=== PATIENT | female | born 1945 | race Caucasian/White ===

== ENCOUNTER 2016-12-21 07:13 | Day surgery (SDC) | payer MEDICARE ==
[~2016-12-21] VITALS: Ht 162.6 cm; Wt 69.6 kg
[2016-12-21] MEDS ORDERED: IOHEXOL 350 MG/ML 50 ML BTL (for Cath Lab) OTHER ONE (07:14)
[2016-12-21] MEDS ORDERED: IOHEXOL 350 MG/ML 10 ML VIAL (for RAD DIAG) IVCONTRAST ONE (07:14)
[2016-12-21] MEDS ORDERED: DEXT155P PO (07:59)
[2016-12-21 08:01] VITALS: BP 126/73; PULSE 65; RESP 18; TEMP 98.7; O2SAT 97
[2016-12-21] MEDS ORDERED: ENAL10TA PO (08:02)
[2016-12-21] MEDS ORDERED: OMEP20TA PO (08:02)
[2016-12-21] MEDS ORDERED: OMEGCAP PO (08:02)
[2016-12-21] MEDS ORDERED: ASPI81TA5 PO (08:02)
[2016-12-21] MEDS ORDERED: CALCTAB33 PO (08:02)
[2016-12-21] MEDS ORDERED: HYDR12.56 PO (08:02)
[2016-12-21] MEDS ORDERED: LOVA40TA PO (08:02)
[2016-12-21] MEDS ORDERED: VITATAB43 PO (08:02)
[2016-12-21] MEDS ORDERED: FERR325T8 PO (08:02)
[2016-12-21] MEDS ORDERED: HEPARIN-NS/PF INJ 1,000 ML ONE (10:55)
[2016-12-21] MEDS ORDERED: MIDAZOLAM HCL 2 MG/2 ML VIAL ONE ×2 (10:55→11:11)
[2016-12-21] MEDS ORDERED: SODIUM CHLORID 0.9% 500 ML INJ 500 ML ONE (10:55)
[2016-12-21 11:02] LABS: BACTERIA, URINE RARE /hpf; BLOOD, URINE TRACE (NEG); GLUCOSE,URINE NEG (NEG); KETONE, URINE NEG (NEG); NITRITE,URINE NEG (NEG); PH, URINE 6.5 (5.0-8.5); SQUAMOUS EPITHELIAL CELL URINE 2 /hpf (0-5); TRANSITIONAL EPI CELLS, URINE <1 /hpf; URINE COLOR LIGHT-YELLOW (YELLW/STRAW)
[2016-12-21 11:07] LABS: COMMENT (UR) CATH-CULTURE IND; CULTURE IF INDICATED CATH CULTURE IND
--- NOTE | 2016-12-21 11:53 | CATHPROC ---
Minted HIS Report Study Information Study Number Admission Scheduled Start Study Start [id number] Dec 21 2016 7:13AM 12/21/2016 Dec 21 2016 10:45AM [place] Service Cardiac Catheterization Admit Source Facility Department Other [facility] - Line Manager Physician and Clinical Staff Initial Alfredo Fregoso Restoration Silversmith Yassine Barnhart,SG Other cathlab, cathlab Recorder Cesar Davis RCIS(BS) ScrNathalia Whitaker RCIS TECH2 Procedures Performed Procedure Location (Site) Vessel Name Coronary Angiograms LCA Left Coronary Coronary Angiograms RCA Right Coronary Equipment Time Biology Internship Description Size Mfg Part Number Used/Scraped ARROW INTERNATIONAL CATHETER, FR.7 BALLOON [id number] 10:46 FR 7 Used INC. WEDGE PRESSURE *[id number] TRANSDUCER, TRLeto Solutions [id number] 10:46 RAZO ZAPIEN * Used W/STOCKCOCK *[id number] VASCADE, FR6 CLOSURE SYSTEM [id number] 11:48 CARDIVA MEDICAL FR 6\7 Used TAVR *[id number] TAVR 534-545T *[id number] 534-546T *[id number] 534-520T *[id number] 534-521T *[id number] WIRE, STRT MOVEABLE CORE [id number] .035 *[id number] 11:45 DAIG/ST. MIO MEDICAL ANGIOSEAL, FR6 VIP FR 6 Used *[id number] 10:46 MEDLINE INDUSTRIES PACK, CCL CUSTOM * Used *[id number] 10:46 Mumboe PACER PEN, SKIN DUAL W/ RULER * Used *[id number] 10:46 Proteus Biomedical WIRE, 3MMJ .035 180CM 180CM Used *[id number] 10:46 NAMIC MANIFOLD, 2 PORT * Used *[id number] 10:46 NAMIC MANIFOLD, 4 PORT * Used *[id number] 10:46 NYCOMED OMNIPAQUE, 350 MG, 150ML 150ML [id number] Used [id number] 10:46 ORTEGA MEDICAL BLANKET,WARM AIR CCL * Used *[id number] 10:46 TERUMO MEDICAL SHEATH, FR5 TERUMO (10CM) FR 5 Used *[id number] 10:46 TERUMO MEDICAL SHEATH, FR7 TERUMO (10CM) FR 7 Used *[id number] Equipment Model, Serial, Lot Number and Expiration Data Description Model Number Serial Number Lot Number Expiration Date ANGIOSEAL, 6 [facility] [id number] 09-27-2017 History: Current Medications Medication Dosage/Unit Route Frequency Last Date/Time Taken ASA Statins (any) History: Allergies Allergy Reaction Sulfa (Sulfonamide Antibiotics) codeine tramadol History: Risk Factors Family History of Hypertension Dyslipidemia Previous AL Previous Heart Failure Premature CAD Yes Yes Yes No No Prior Valve Prior PCI Prior CABG Surgery No No No Cerebrovascular Peripheral Artery Chronic Lung On Dialysis Diabetes Disease Disease Disease No No No No No History: Symptoms/Diagnosis Selection Items SOB History: Stress Tests Stress or Imaging Studies Performed No History: Other Disease Selection Items HTN History: Other Current Smoker No Labs Hgb (g/dl) Hct (%) WBC (l/cumm) Platelets (thousands) 11.60-17.00 35.00-51.00 4.00-11.00 150.00-450.00 13.0 39.3 6.2 241 Glucose (mg/dl) BUN (mg/dl) Creatinine (mg/dl) BUN:Creatinine (1:x) 74.00-106.00 7.00-18.00 0.50-1.30 10.00-20.00 109 16 0.8 20 Na (meq/l) K (meq/l) 136.00-145.00 3.50-5.10 143 3.7 CPK-MB (ng/ML) 0.50-3.60 Not Drawn Medication Medication Total Dose (Bolus/Oral) Medication Total Dosage/Unit 1% XYLOCAINE 20 mL FENTANYL 100 mcg VERSED 2.5 mg Medications (Bolus/Oral) Medication Time Given Dosage/Unit Administered By Reason 12/21/2016 11:07:12 VERSED 2 mg Yassine Barnhart AM 2 mg VERSED given in lab by Yassine Barnhart RN in Left Antecubital via Peripheral IV. Ordered by Alfredo Reese. 12/21/2016 11:07:20 FENTANYL 50 mcg Yassine Barnhart AM 50 mcg FENTANYL given in lab by Yassine Barnhart RN in Left Antecubital via Peripheral IV. Ordered by Alfredo Alvares. 12/21/2016 11:11:22 1% XYLOCAINE 20 mL Yassine Barnhart AM 20 mL 1% XYLOCAINE given in lab by Yassine Barnhart RN in Right Groin via Subcutaneous. Ordered by Alfredo Contreras. 12/21/2016 11:13:13 VERSED 0.5 mg Yassine Barnhart AM 0.5 mg VERSED given in lab by Yassine Barnhart RN in Left Antecubital via Peripheral IV. Ordered by Alfredo Foote. 12/21/2016 11:14:02 FENTANYL 50 mcg Yassine Barnhart AM 50 mcg FENTANYL given in lab by Yassine Barnhart RN in Left Antecubital via Peripheral IV. Ordered by Alfredo Alvares. Medication (Drip) Medication Time Given Dosage/Unit Concentration/Unit Diluent (ml) Solution 12/21/2016 10:46:58 IV Solutions 0 mL (IV) 500 NaCl .9 AM Patient arrived on IV Solutions given by Yassine Barnhart RN in Left Antecubital via Peripheral IV. Pum p/Drip Flow = 20 ml/hr using NaCl .9. Ordered by Alfredo Reese. Initial Case Assessment Cardiovascular HR Rhythm NIBP Chest Pain 62 nsr 144/49 0 Edema Present Skin color Skin None Normal Warm Dry Circulatory - Right Pulses Dorsalis Pedis Femoral 3 3 Scale (0,1,2,3,4,d) Circulatory - Left Pulses Dorsalis Pedis Femoral 3 3 Scale (0,1,2,3,4,d) Neurological State Oriented to time-place- Alert Moves all extremities person Respiration - General Respiration Rate SpO2 (%) (B/min) 16 96 Final Case Assessment Cardiovascular HR Rhythm NIBP Chest Pain 60 nsr 107/56 0 Edema Present Skin color Skin None Normal Warm Dry Circulatory - Right Pulses Dorsalis Pedis Femoral 3 3 Scale (0,1,2,3,4,d) Circulatory - Left Pulses Dorsalis Pedis Femoral 3 3 Scale (0,1,2,3,4,d) Neurological State Oriented to time-place- Alert Moves all extremities person Respiration - General Respiration Rate SpO2 (%) (B/min) 16 96 Chronological Log Time Study Chronological Log 10:46:48 Patient arrived via Bed. 10:46:49 Patient Name, D.O.B, / Armband Verified By R.N. 10:46:50 Consent signed by the physician and the patient and verified by the Line Manager staff. 10:46:50 Pre-op and post- op instructions given; patient acknowledges understanding of instructions. 10:46:51 Verbal Stimulation=2 Physical Stimulation=2 Airway=2 Respiration=2 TOTAL=8. (0=absent, 1=li mited, 2=present) 10:46:52 Presedation assessment performed by Line Manager RN. 10:46:52 Immediate Presedation assesment performed by physician. 10:46:53 Patient has been NPO for More than 6Hrs. 10:46:53 Skin Breakdown- none per patient 10:46:54 Patient Warmer Placed on the Table. 10:46:55 Chrissy Prominences Protected 10:46:57 A # 20 IV was noted in the Antecubital (left). Grade = 0 Patient arrived on IV Solutions given by Yassine Barnhart RN in Left Antecubital via Peripheral I V. Pump/Drip Flow = 20 10:46:58 ml/hr using NaCl .9. Ordered by Alfredo Reese. 10:46:58 History and physical on the chart or being dictated. Assessment: Initial Case, HR=62 BPM, Rhythm=nsr, DIXO=813/49 mmhg, Chest Pain=0, Edema=None, Co rolf=Normal, Skin = Warm, Dry Right Pulses: Lopez Ped=3, Femoral=3 10:53:37 Left Pulses: Lopez Ped=3, Femoral=3 Neurological: State=Alert, Ox3, LOU Respiration: Resp=16 B/min, SpO2=96 % Vitals capture started with the following parameters, Patient=Adult, Interval=5 min, Initial Pr xquink=759 mmHg, 10:56:15 Deflation Rate=5 mmHg, Cuff placed on Left Arm 10:56:47 Bilateral groins prepped with 2% chlorhexidine, and draped after a 3 minute waiting time. 10:57:45 HR=67 bpm, RAAH=346/49 mmhg, SpO2=97.0 %, Resp=18 B/min, Pain=0, Sudheer=10, Pruitt=2 10:59:44 MD paged 11:01:55 HR=63 bpm, OYGJ=380/72 mmhg, SpO2=98.0 %, Resp=10 B/min, Pain=0, Sudheer=10, Pruitt=2 11:05:28 MD responded 11:05:45 Pressure channel 1 zeroed. 11:06:16 Reference ECG taken 11:06:25 MD arrived. 11:06:28 Immediate Presedation assesment performed by physician. Time Out. Correct patient, correct procedure, correct physician, power injector not loaded with contrast with surgical 11:06:37 team present. Time Out Concurred by MD and individual staff in procedure. 11:06:50 HR=67 bpm, PPHW=090/70 mmhg, SpO2=98.0 %, Resp=14 B/min, Pain=0, Sudheer=10, Pruitt=2 11:07:12 2 mg VERSED given in lab by Yassine Barnhart RN in Left Antecubital via Peripheral IV. Ordere d by Alfredo Reese. 11:07:20 50 mcg FENTANYL given in lab by Yassine Barnhart RN in Left Antecubital via Peripheral IV. Or dered by Alfredo Reese. 11:07:24 Verbal Stimulation=2 Physical Stimulation=2 Airway=2 Respiration=2 TOTAL=8. (0=absent, 1=li mited, 2=present) 11:09:17 Pressure channel 2 zeroed. 11:10:42 Case Start 11:11:22 20 mL 1% XYLOCAINE given in lab by Yassine Barnhart RN in Right Groin via Subcutaneous. Order ed by Alfredo Reese. 11:11:51 HR=67 bpm, RUEM=452/61 mmhg, SpO2=94.0 %, Resp=16 B/min, Pain=0, Sudheer=10, Pruitt=2 11:13:13 0.5 mg VERSED given in lab by Yassine Barnhart RN in Left Antecubital via Peripheral IV. Orde red by Alfredo Reese. 11:14:02 50 mcg FENTANYL given in lab by Yassine Barnhart RN in Left Antecubital via Peripheral IV. Or dered by Alfredo Reese. 11:16:52 HR=68 bpm, OVWQ=265/57 mmhg, SpO2=86.0 %, Resp=16 B/min, Pain=0, Sudheer=10, Pruitt=2 11:19:27 Access site was Right Femoral Vein. 11:20:08 Access site was Right Femoral Artery. 11:20:11 A SHEATH, FR5 TERUMO (10CM) FR 5 was advanced into the Fem Art (right) using the Percutaneo us technique. 11:20:15 A SHEATH, FR7 TERUMO (10CM) FR 7 was advanced into the Fem Vein (right) using the Percutane ous technique. 11:21:47 HR=60 bpm, YWTS=708/63 mmhg, SpO2=90 %, Resp=9 B/min, Pain=0, Sudheer=10, Pruitt=2 11:22:57 A CATHETER, FR.7 BALLOON WEDGE PRESSURE FR 7 was inserted via Fem Vein (right) Recorded Pressure: RA, HR=51, Condition=Condition 1 11:23:40 (Right Atrium) RA Recorded Pressure: RV, HR=64, Condition=Condition 1 11:24:10 (Right Ventricle) RV Recorded Pressure: MPA, HR=56, Condition=Condition 1 11:25:57 (Main Pulmonary Artery) MPA 17/09/11 Recorded Pressure: PCW, HR=63, Condition=Condition 1 11:26:36 (Pulmonary Capillary Wedge) PCW 11:26:48 HR=59 bpm, NIBP=98/61 mmhg, SpO2=90.0 %, Resp=15 B/min, Pain=0, Sudheer=10, Pruitt=2 11:27:00 Saturation: Site=PA (Pulmonary Artery) , O2=69.9 %, Hgb=13 gm/dl, Condition=Condition 1. Us ed in calculation. 11:27:10 Saturation: Site=Ao (Aorta) , O2=96.5 %, Hgb=13 gm/dl, Condition=Condition 1. Used in calcu lation. A AL 1 INFINITI CATHETER FR 5 was advanced over a wire. OMNIPAQUE, 350 MG, 150ML 150ML was used for 11:28:20 injections. 11:29:25 [place] Kourtney Catheter Removed 11:30:22 The previous wire was exchanged for a WIRE, STRT MOVEABLE CORE .035 *. 11:31:47 HR=61 bpm, AMWS=582/60 mmhg, SpO2=88.0 %, Resp=15 B/min, Pain=0, Sudheer=10, Pruitt=2 11:35:29 Wire removed After removing the current catheter a AL 2 INFINITI CATHETER FR 5 was advanced over a WIRE, 3MM J .035 180CM 11:35:32 180CM. 11:36:16 The previous wire was exchanged for a WIRE, STRT MOVEABLE CORE .035 *. 11:36:52 HR=65 bpm, NIBP=86/50 mmhg, SpO2=94.0 %, Resp=13 B/min, Pain=0, Sudheer=10, Pruitt=2 11:38:07 Wire removed After removing the current catheter a JL 5.0 INFINITI CATHETER FR 5 was advanced over a WIRE, 3 MMJ .035 180CM 11:38:46 180CM. 11:41:47 The LCA was injected and visualized at various angles. OMNIPAQUE, 350 MG, 150ML 150ML used . 11:42:26 HR=62 bpm, TCUS=674/57 mmhg, SpO2=90.0 %, Resp=14 B/min, Pain=0, Sudheer=10, Pruitt=2 After removing the current catheter a JR 4.0 INFINITI CATHETER FR 5 was advanced over a WIRE, 3 MMJ .035 180CM 11:43:47 180CM. 11:44:27 The RCA was injected and visualized at various angles. OMNIPAQUE, 350 MG, 150ML 150ML used . 11:45:14 Catheter was removed 11:45:25 ANGIOSEAL, FR6 VIP FR 6 placement in the Fem Art (right) 11:46:27 VASCADE, FR6 CLOSURE SYSTEM TAVR FR 6\7 placement in the Fem Vein (right) 11:46:50 HR=61 bpm, KSOP=765/56 mmhg, SpO2=93.0 %, Resp=8 B/min, Pain=0, Sudheer=10, Pruitt=2 11:47:41 Case End Assessment: Final Case, HR=60 BPM, Rhythm=nsr, PHQZ=319/56 mmhg, Chest Pain=0, Edema=None, [place] r=Normal, Skin = Warm, Dry Right Pulses: Lopez Ped=3, Femoral=3 11:47:44 Left Pulses: Lopez Ped=3, Femoral=3 Neurological: State=Alert, Ox3, LOU Respiration: Resp=16 B/min, SpO2=96 % 11:48:36 Catheter(s) removed without difficulty 11:48:39 Sterile dressing applied to site 11:48:40 No case complications noted. 11:48:41 Cine recording checked. 11:49:02 Bedside Report will be given. 11:49:04 Implantable Device card placed in patient's chart. 11:49:05 Contrast Scanned 11:49:08 Verbal Stimulation=2 Physical Stimulation=2 Airway=2 Respiration=2 TOTAL=8. (0=absent, 1=li mited, 2=present) 11:49:13 A Left and Right Heart Cath was performed. 11:51:53 ILRS=514/56 mmhg, Pain=0, Sudheer=10, Pruitt=2 11:52:29 Patient moved to stretcher 11:52:31 Vitals capture stopped. End Study - Contrast Media Used In Study Contrast Total Opened (mL) Total Used (mL) Total Wasted (mL) Omnipaque 30 30 0 End Study - Maximum Contrast Load Max Contrast Load (mL) 431.3 End Study - Radiation Exposure Fluoro Time (minutes) 11.0 End Study - Patient Disposition Complications Transferred To Interventional Outcome No Line Manager Holding No attempt made
[2016-12-21] MEDS ORDERED: ONDANSETRON HCL 4 MG/2 ML VIAL IV PUSH PRN (12:00)
[2016-12-21] MEDS ORDERED: METOCLOPRAMIDE HCL 10 MG/2 ML VIAL IV PUSH PRN (12:00)
[2016-12-21] MEDS ORDERED: SODIUM CHLOR 0.9% 250 ML INJ 250 ML IV PRN (12:00)
[2016-12-21] MEDS ORDERED: LIDOCAINE HCL 1% 50 ML VIAL INFIL PRN (12:00)
[2016-12-21] MEDS ORDERED: LORazepam 2 MG/ML VIAL IV PUSH PRN (12:00)
[2016-12-21] MEDS ORDERED: ATROPINE SULFATE 1 MG/ML VIAL IV PUSH PRN (12:00)
[2016-12-21] MEDS ORDERED: BACITRACIN OINT 0.9 GM PKT TOP ONE (12:00)
[2016-12-21] MEDS ORDERED: MISC INFORMATION XX ONE (12:00)
--- NOTE | 2016-12-21 12:26 | MA ---
cc: ALFREDO GONSALES DATE 12/21/2016 PROCEDURE PERFORMED 1. Fluoroscopy with interpretation. 2. Right heart catheterization. 3. Coronary angiography. METHOD The risks, benefits and alternatives were discussed with the patient. The patient understood and consented to the procedure. PROCEDURE The patient was brought into the catheterization lab, placed on the catheterization table. The right groin was prepped and draped in sterile fashion. The right groin was anesthetized using 2% lidocaine. The right common femoral artery was is cannulated and the 5-[place]ine[place], 11-cm sheath was placed without difficulty. The right femoral vein was accessed and a 5-[place]inean, 11-cm sheath was placed without difficulty. RIGHT HEART CATHETERIZATION 1. Right atrial pressure measured at 6 mmHg. 2. Right ventricular pressure measured at 22/2 mmHg. 3. Pulmonary arterial pressure measured 20/7 mmHg. 4. Pulmonary capillary wedge pressure measured 6 mmHg. 5. Cardiac output measured at 4.6 liters per minute. 6. Cardiac index is 2.7 liters per minute per meter2. CORONARY ANGIOGRAPHY 1. Left main coronary is angiographically normal. 2. Left anterior descending coronary is angiographically normal. 3. Left circumflex coronary is angiographically normal. 4. Right coronary is a dominant vessel giving rise to a posterior descending branch. The right coronary is angiographically normal. CONCLUSIONS 1. Angiographically normal coronary arteries. 2. Severe aortic stenosis. PLAN We will consul Cardiothoracic Surgery for consideration of aortic valve replacement. Alfredo Gonsales MD SM/SSB /11:51 AM /12:16 PM
[2016-12-21 12:51] LABS: MRSA PCR NEGATIVE (NEGATIVE); STAPH AUREUS PCR NEGATIVE (NEGATIVE)
--- NOTE | 2016-12-21 14:25 | RADRPT ---
EXAM DATE/TIME: 12/21/2016 13:39 [facility] COMPARISON: No previous studies available for comparison. INDICATIONS : Preop aortic valve replacement. MEDICAL HISTORY : Hypertension. Aortic stenosis. Chronic kidney disease. SURGICAL HISTORY : Cardiac cath. ENCOUNTER: Initial ACUITY: 1 day PAIN SCORE: 0/10 LOCATION: Bilateral neck PEAK SYSTOLIC VELOCITIES (cm/sec): ICA/CCA RATIO: Right: 1.1 Left: 1.0 ICA: Right: 89.7 Left: 91.4 CCA: Right: 82.3 Left: 90.1 ECA: Right: 74.3 Left: 97.8 VERTEBRAL: Right: 43.1 antegrade Left: 110.8 antegrade Elevated flow velocities and ICA/CCA ratios have been found to correlate with increased degrees of vessel stenosis, calculated as percentage of diameter relative to a normal segment of distal ICA/CCA FINDINGS: RIGHT CAROTID: No significant stenosis is visualized. The waveforms are within normal limits. LEFT CAROTID: Minimal plaque formation in the carotid bulb. No shadowing. No widening of the velocity spectrum. VERTEBRAL ARTERIES: Antegrade flow is seen in both vertebral arteries. There is, however, asymmetric velocity, elevated in the left vertebral. CONCLUSION: 1. Normal hemodynamic profile both carotids. 2. Antegrade flow in both vertebrals with elevated velocity on the left side. Benjamin Eller MD on December 21, 2016 at 14:22 Board Certified Radiologist. This report was verified electronically.
--- NOTE | 2016-12-21 17:23 | RADRPT ---
EXAM DATE/TIME: 12/21/2016 16:43 [facility] COMPARISON: No previous studies available for comparison. INDICATIONS : Evaluate for pneumonia, pneumothorax or communicable disease. Preop workup for possible aortic valve replacement MEDICAL HISTORY : Hypertension. aortic stenosis, chronic kidney disease SURGICAL HISTORY : cardiac catheterization ENCOUNTER: Initial ACUITY: 1 day PAIN SCORE: 0/10 LOCATION: Bilateral chest FINDINGS: The lungs are symmetrically aerated. There is focal area of infiltrate without air bronchograms in t he lower lateral left lung, only seen on the frontal view, causing loss of delineation lateral left h emidiaphragm. At the right apex, there is an elongated opacity which measures 3 x 8 mm, best seen in the interspace between the posterior 3rd and 4th ribs. Cannot exclude pulmonary nodule. The heart is normal size. Osseous structures are grossly intact. CONCLUSION: 1. Faint opacity in the right apex is of uncertain significance. Can not exclude a pulmonary nodule. 2. Focal area of consolidation lower lateral left lung. 3. Recommend CT thorax for further evaluate the right apex for presence of a pulmonary nodule. Benjamin Eller MD on December 21, 2016 at 17:20 Board Certified Radiologist. This report was verified electronically.
[2016-12-21 18:43] LABS: AUTOMATED NEUTROPHIL # 6.6 TH/MM3 (1.8-7.7); BASOPHIL % 0.5 % (0.0-2.0); EOSINOPHIL # 0.1 TH/MM3 (0-0.4); EOSINOPHIL % 1.2 % (0.0-4.0); HEMATOCRIT 35.6 % (35.0-46.0); HEMO FLAGS DIFF FINAL; LYMPH % 16.6 % (9.0-44.0); LYMPHOCYTE # 1.5 TH/MM3 (1.0-4.8); MEAN CELL VOLUME 90.7 FL (80.0-100.0); MEAN CORPUSCULAR HEMOGLOBIN 31.4 PG (27.0-34.0); MEAN CORPUSCULAR HGB CONC 34.6 % (32.0-36.0); MONO % 8.2 % (0.0-8.0); NEUT % 73.5 % (16.0-70.0); PLATELET COUNT 224 TH/MM3 (150-450); RED BLOOD COUNT 3.92 MIL/MM3 (4.00-5.30); RED CELL DISTRIBUTION WIDTH 13.8 % (11.6-17.2)
[2016-12-21 18:52] LABS: PROTHROMBIN TIME - PATIENT 11.2 SEC (9.8-11.6)
[2016-12-21 19:16] LABS: ALKALINE PHOSPHATASE 64 U/L (45-117); ALT (GPT) 31 U/L (10-53); ANION GAP 6 MEQ/L (5-15); AST (GOT) 46 U/L (15-37); BICARBONATE 27.6 MEQ/L (21.0-32.0); BLOOD UREA NITROGEN 16 MG/DL (7-18); CHLORIDE 102 MEQ/L (98-107); GLOMERULAR FILTRATION RATE 60 ML/MIN (>89); POTASSIUM 4.5 MEQ/L (3.5-5.1); SODIUM (NA) 136 MEQ/L (136-145); TOTAL BILIRUBIN ADULT 0.6 MG/DL (0.2-1.0)
[2016-12-21 21:08] LABS: HEMOGLOBIN A1a 1.1 %; HEMOGLOBIN A1b 0.8 %; HEMOGLOBIN Ao 83.3 %; HEMOGLOBIN F 1.9 %; HEMOGLOBIN LA1C 2.5 %; HEMOGLOBIN P3 5.4 %
--- NOTE | 2016-12-21 21:51 | RADRPT ---
EXAM DATE/TIME: 12/21/2016 17:22 [facility] COMPARISON: No previous studies available for comparison. INDICATIONS : Aortic stenosis IV CONTRAST: 100 cc Omnipaque 350 (iohexol) IV RADIATION DOSE: 9.97 CTDIvol (mGy) MEDICAL HISTORY : Hypertension. Chronic renal disease,aortic stenosis SURGICAL HISTORY : Cardiac cath ENCOUNTER: Initial ACUITY: 1 day PAIN SCALE: 0/10 LOCATION: TAVR TECHNIQUE: Volumetric scanning was performed using a multi-row detector CT scanner. The data was post processed with a variety of visualization algorithms including full volume maximum intensity projection, multi -planar sliding thin slab reformation, curved planar reformation, and surface rendering techniques. Using automated exposure control and adjustment of the mA and/or kV according to patient size, radiat ion dose was kept as low as reasonably achievable to obtain optimal diagnostic quality images. DIC OM format image data is available electronically for review and comparison. FINDINGS: CARDIAC: The coronary system is less dominant. There is calcifications of the diagonal branch and RCA branches . AORTIC ROOT/VALVE: Calcifications of the aortic fossa are seen. The aortic root measures 2.8 and distance to takeoff of the LAD is almost 1 cm.. Mid thoracic aorta measures 3.6 x 3.7 cm in AP and transverse diameters with no calcifications. THORACIC AORTA: Origin of the great vessels is normal. No evidence of aneurysm, mural thrombus, dissection, mural ca lcification, or stenosis. ABDOMINAL AORTA: No evidence of aneurysm, mural thrombus, dissection, mural calcification, or stenosis. CELIAC ARTERY: Celiac artery is widely patent. SMA: Superior mesenteric artery is widely patent. RIGHT RENAL ARTERY: Right renal artery is widely patent. LEFT RENAL ARTERY: Left renal artery is widely patent and there are 2 left renal arteries.. RIGHT COMMON ILIAC: No evidence of aneurysm, mural thrombus, dissection, mural calcification, or stenosis. The common fe moral measures 8mm. LEFT COMMON ILIAC: No evidence of aneurysm, mural thrombus, dissection, mural calcification, or stenosis. The common fe moral measures 8mm. THORAX: Unremarkable ABDOMEN: Unremarkable PELVIS: There is hemorrhage which extends from the patient's right inguinal region extraperitoneal in locatio n all the way to the level of the cecum maximum diameter of approximately 6.2 cm dissecting within ex traperitoneal fascial planes. There are gas bubbles within this hemorrhage, however no active extrava sation is seen. CONCLUSION: Extraperitoneal hemorrhage extending from right inguinal region to the level of the cecum and causes mass effect on the bladder without evidence for active extravasation. Findings were discussed with Dr Deepti Dueñas covering for Dr. Reese on 12/21/2016 at the time of this dictation. Omar Jones MD on December 21, 2016 at 21:36 Board Certified Radiologist. This report was verified electronically.
--- NOTE | 2016-12-22 08:15 | MB ---
cc: ENEDELIA COLON DATE OF : 43 DATE OF CONSULTATION: 12/21/2016 HISTORY OF PRESENT ILLNESS: The patient is a 71 year-old female complaining of shortness of breath and fatigue over the past month. Denied any chest pain. No syncope. She has a history of heart murmur that she has known for the last 10 years, was seen in the past by Dr. Le in [place], underwent echocardiogram on 11/30/2016 showing aortic valve gradient of 64 with aortic valve area 0.63, mild aortic valve regurgitation, severe aortic valve stenosis, mild tricuspid valve regurgitation, some left ventricular hypertrophy, EF of 60-65%, some grade 1 diastolic dysfunction. She underwent cardiac cath today which showed no evidence of obstructive disease, EF of 55%. We were consulted to evaluate for transcatheter aortic valve replacement versus aortic valve replacement. PAST MEDICAL HISTORY: Significant for: 1. Severe aortic stenosis. 2. Coronary artery disease. 3. Hypertension. 4. Hyperlipidemia. 5. History of prior GI bleed. 6. Chronic kidney disease. PAST SURGICAL HISTORY: 1. Right breast surgery, benign. 2. Colonoscopy. 3. EGD. 4. History of jaw surgery 30 years ago. 5. Bilateral knee arthroscopic surgery. ALLERGIES: None known. HOME MEDICATIONS: 1. Aspirin 81 daily. 2. Calcium. 3. Enalapril. 4. Ferrous sulfate 5. Fish oil. 6. Hydrochlorothiazide 7. Lovastatin. 8. Omeprazole 9. Vitamin B12. FAMILY HISTORY: Mother at 73 from heart disease. Father from complications of prostate cancer. SOCIAL HISTORY The patient , two children. No tobacco. Retired from working at [employer]. No alcohol. REVIEW OF SYSTEMS: In general, no night sweats, fever, heat and cold intolerance. Skin: No psoriasis, itching or hives. HEENT: No blurred vision, hearing loss. Respiratory: Positive for shortness of breath. No cough. Cardiovascular: No chest pain. No syncope. No paroxysmal nocturnal dyspnea. Gastrointestinal: No diarrhea, vomiting. Genitourinary: No burning, frequency, urgency. MANUFACTURING QUALITY TECHNICIAN: No history of TIA, seizure disorder. Endocrinology: No history of diabetes and/or hypothyroidism. PHYSICAL EXAMINATION: On exam, blood pressure 140/80, heart rate 96, temperature max 98.8. GENERAL: Patient is awake, alert, no acute distress. Head: Normocephalic, atraumatic. Pupils equal and reactive. Oral mucosa pink, moist. Neck: Supple. No JVD. Heart: Heart sounds grade 3/6 systolic murmur. Lungs: Clear to auscultation. No wheezes, rales or rhonchi. Abdomen: is soft, obese. Extremities: No cyanosis, clubbing or edema. LABORATORY DATA: Lab work shows moderate leuko esterase, rare bacteria, culture completely pending. Sodium 143, potassium 3.7, BUN 16, creatinine 0.82. Hemoglobin 13, hematocrit 39, white cell count 6, platelet count of 241, INR 0.9. MRSA negative. Carotid ultrasound was unremarkable. Chest x-ray: Some pain opacity in the right apex of uncertain significance, cannot exclude a pulmonary nodule. Recommend CT chest. CTA of the chest is pending. STS data shows a risk of mortality 2.164, morbidity mortality 13, frailty score 1.4. IMPRESSION: The patient is a 71 year-old female with history of severe aortic stenosis, status post heart catheterization with nonobstructive disease. The patient's risk of mortality is 2.165 with a frailty of 1.4. She is relatively unremarkable comorbidities other than her age of 71. Chronic kidney disease stage II, GFR 60 to 80. At this time the patient will be further evaluated by Dr. Enedelia Colon to evaluate the patient for TAVR, however, she is relatively low risk score recommending minimally invasive aortic valve replacement at this time. Dictated by: VICKY MazariegosP-Jana MD SHEBA Pang/ZAKIYA /5:58 PM /8:06 AM
--- NOTE | 2016-12-23 09:31 | RSPPFT ---
DATE OF PROCEDURE: 12/21/16 COMMENTS: Spirometry shows FVC of 2.6 at 94% of predicted, FEV1 of 1.8 at 86%, FEV1/FVC ratio is normal. Flow is normal at FEF 25 and FEF 50. Flow is mildly decreased at FEF 25-75. Post-bronchodilator study was not done. IMPRESSION: 1. Mild small airways obstructive lung disease. 2. Post-bronchodilator study was not performed.
== END 2016-12-21 18:18 | disposition home or self-care (01) ==
LOC: HCAT 07:13 → HDIC 07:14 → HCAT 18:18
PROVIDERS: ATTEND Internal Medicine
DX: I35.0 Nonrheumatic aortic (valve) stenosis (principal); R53.83 Other fatigue; I25.10 Atherosclerotic heart disease of native coronary artery without angina pectoris; I12.9 Hypertensive chronic kidney disease with stage 1 through stage 4 chronic kidney disease, or unspecified chronic kidney disease; N18.2 Chronic kidney disease, stage 2 (mild); I70.0 Atherosclerosis of aorta; E78.5 Hyperlipidemia, unspecified; I65.29 Occlusion and stenosis of unspecified carotid artery; D50.9 Iron deficiency anemia, unspecified; J20.9 Acute bronchitis, unspecified; M54.5 Low back pain; M54.2 Cervicalgia; E55.9 Vitamin D deficiency, unspecified
CPT/HCPCS: 71020; 74174; 80053; 81001; 82040; 82810; 83036; 85025; 85610; 86850; 86900; 86901; 87086; 87640; 87641; 93453; 93880; 94010; C1760; C1769; C1893; G0269; J1644; J2250; J3010; J7040; Q9967

== ENCOUNTER 2017-01-04 07:30 | Inpatient (IN) | payer MEDICARE ==
[~2017-01-04] VITALS: Ht 163.8 cm; Wt 73.5 kg
[~2017-01-04 07:30] MED LIST: CALCTAB33 PO; DEXT155P PO; ECASA81 PO; ENAL10TA PO; FERR325T18 PO; HYDR12.56 PO; LOVA40TA PO; OMEGCAP PO; OMEP20TA93 PO; VITATAB43 PO
[2017-01-07] VITALS (8 sets, daily range): BP systolic 99–135; BP diastolic 51–64; PULSE 61–79; RESP 12–16; TEMP 96.3–98.6; O2SAT 96–99
[2017-01-07] MEDS ORDERED: DEXTROSE 50% IN WATER 50 ML VIAL(D50) IV PUSH PRN ×2 (06:00→14:00)
[2017-01-07] MEDS ORDERED: CHLORHEXIDINE GLUCONATE 2 % 1 PACK (2 CLOTHS) TOPICAL PRN (06:00)
[2017-01-07] MEDS ORDERED: METOPROLOL TARTRATE 25 MG TAB PO SCH (06:00)
[2017-01-07] MEDS: LACTATED RINGER'S 1000 ML IV PRN ×2 (06:00→14:59)
[2017-01-07] MEDS ORDERED: ceFAZolin 2 GM PREMIX 50 ML IV SCH (06:00)
[2017-01-07] MEDS ORDERED: SODIUM CHLORIDE 0.9% FLUSH 10 ML FLUSH IV FLUSH PRN ×3 (06:00→14:00)
[2017-01-07] MEDS ORDERED: CEFAZOLIN 500 MG in NS IRR BTL 500 ML IRRIGATION SCH (06:00)
[2017-01-07] MEDS ORDERED: POVIDONE IODINE 5% (ANTISEPSIS KIT) 4 APPLICATIONS EACH NARE PRN (06:00)
[2017-01-07] MEDS ORDERED: CHLORHEXIDINE GLUCONATE 4% SOLN 120 ML BTL TOPICAL SCH (06:00)
[2017-01-07] MEDS ORDERED: SODIUM CHLORID 0.9% 500 ML IV PRN (06:00)
[2017-01-07] MEDS ORDERED: HEPARIN SODIUM - SQ 10,000 UNITS/ML VIAL ONE ×2 (06:03→07:26)
[2017-01-07] MEDS ORDERED: methylPREDNISolone SOD SUCC 125 MG/2 ML VIAL ONE (06:04)
[2017-01-07] MEDS ORDERED: VANCOMYCIN HCL 1000 MG VIAL ONE (06:04)
[2017-01-07] MEDS ORDERED: CUSTODIOL HTK IRR SOLN 2,000 ML ONE (07:26)
[2017-01-07] MEDS ORDERED: ALBUMIN 25% INJ 50 ML IV ONE (07:26)
[2017-01-07] MEDS ORDERED: HEPARIN SODIUM - IV 10,000 UNITS/10 ML VIAL ONE (07:27)
[2017-01-07] MEDS ORDERED: SODIUM BICARBONATE 8.4% INJ 150 ML ONE (07:27)
[2017-01-07] MEDS ORDERED: MANNITOL INJ 100 ML ONE (07:28)
[2017-01-07] MEDS ORDERED: CALCIUM CHLORIDE 10% SOLN 1 GRAM/10 ML SYR ONE (07:28)
[2017-01-07] MEDS ORDERED: POTASSIUM CHLORIDE 40 MEQ/20 ML VIAL ONE (07:29)
[2017-01-07] MEDS: BUPIVACAINE HCL PF 0.5% 30 ML VIAL ONE ×2 (07:52→12:03)
[2017-01-07] MEDS: MUPIROCIN 2% OINT 22 GM TUBE EACH NARE SCH ×2 (09:00→21:00)
[2017-01-07] MEDS: INSULIN REGULAR 100 UNITS in NS 100 ML IV PRN (09:50)
[2017-01-07] MEDS ORDERED: DEXMEDETOMIDINE HCL 200 MCG/2 ML VIAL ONE (11:59)
[2017-01-07] MEDS ORDERED: SODIUM CHLORIDE 0.9% 20 ML VIAL IV ONE (12:00)
[2017-01-07] MEDS ORDERED: AMIODARONE HCL 150 MG/3 ML VIAL IV ONE (12:00)
[2017-01-07] MEDS ORDERED: GLYCOPYRROLATE 1 MG/5 ML SYRINGE IV PUSH ONE (12:00)
[2017-01-07] MEDS ORDERED: NITROGLYCERIN 50 MG/DEXTROSE 5% SOLN 250 ML BTL IV ONE (12:00)
[2017-01-07] MEDS ORDERED: LIDOCAINE HCL 1% PF 5 ML AMPULE OTHER ONE (12:00)
[2017-01-07] MEDS ORDERED: HEPARIN SODIUM - SQ 10,000 UNITS/ML VIAL SQ ONE (12:00)
[2017-01-07] MEDS ORDERED: VECURONIUM BROMIDE 20 MG VIAL IV ONE (12:00)
[2017-01-07] MEDS ORDERED: NEOSTIGMINE 3 MG/3 ML SYR IV ONE (12:00)
[2017-01-07] MEDS ORDERED: PHENYLEPHRINE HCL 10 MG/ML VIAL IV ONE (12:00)
[2017-01-07] MEDS ORDERED: MAGNESIUM SULFATE 1 GM/2 ML VIAL IV ONE (12:00)
[2017-01-07] MEDS ORDERED: PROTAMINE SULFATE 250 MG/25 ML VIAL IV ONE (12:00)
[2017-01-07] MEDS ORDERED: SODIUM BICARBONATE 8.4% INJ 50 MEQ/50 ML SYR IV ONE (12:00)
[2017-01-07] MEDS ORDERED: fentaNYL CITRATE 2500 MCG/50 ML VIAL IV ONE (12:00)
[2017-01-07] MEDS ORDERED: ePHEDrine/NS 25 MG/5 ML SYR IV ONE ×2 (12:00)
[2017-01-07] MEDS ORDERED: ceFAZolin INJ 1,000 MG VIAL IV ONE (12:00)
[2017-01-07] MEDS ORDERED: MIDAZOLAM HCL 2 MG/2 ML VIAL IV ONE (12:00)
[2017-01-07] MEDS ORDERED: PHENYLEPH/NS 1000 MCG/10 ML SYR IV ONE ×2 (12:00)
[2017-01-07] MEDS ORDERED: POTASSIUM CHLOR 40 MEQ PREMIX 100 ML ONE (12:04)
[2017-01-07] MEDS ORDERED: ceFAZolin INJ 1,000 MG VIAL ONE (12:17)
[2017-01-07] MEDS ORDERED: DEXMEDETOMIDINE INJ 200 MCG in SODIUM CHLORIDE 0.9% INJ 50 ML IV PRN (12:30)
--- NOTE | 2017-01-07 12:53 | PD.OP ---
cc: Enedelia Colon MD; Alfredo Reese MD Operative Report Date of Surgery: Jan 07, 2017 Preoperative Diagnosis: (1) Aortic stenosis (2) Diastolic CHF due to valvular disease Postoperative Diagnosis: same Procedure: Minimally invasive AVR with a 23 Intuity tissue valve Ultrasound-guided left femoral artery and vein access with Perclose closure of the artery CHRISTINE Anesthesia: Dr. Crowder Surgeon: Enedelia Colon [employer] Bever[employer] Intern(s): NESTOR Kebede Operation and Findings: The risks, benefits, complications, treatment options, and expected outcomes were discussed with the patient. The possibilities of reaction to medication, pulmonary aspiration, perforation of viscus, bleeding, recurrent infection, the need for additional procedures, failure to diagnose a condition, and creating a complication requiring transfusion or operation were discussed with the patient. The patient concurred with the proposed plan, giving informed consent. The site of surgery properly noted/marked. The patient was taken to Operating Room, identified as Marbella James and the procedure verified as Minimally Invasive Aortic Valve Replacement. A Time Out was held and the above information confirmed. Standard monitoring lines and Hoffmann catheter were placed. General anesthesia was induced. The patient was prepped and draped in a sterile fashion. . A 6 cm right anterior thoracotomy was performed and the 3rd rib was shingled. The right internal mammary artery and vein were ligated and divided. An Deonte retractor was placed followed by a small chest retractor. The pericardium was opened and a pericardial sling was created using interrupted 0 silk sutures. A small 1 cm incision was made at the 6th intercostal space and an LV vent and pericardial suction were placed through this access port. The aorta was dissected posteriorly for crossclamp placement. The left femoral artery and vein were percutaneously accessed using ultrasound guidance. The patient was heparinized for cardiopulmonary bypass. The left femoral artery was cannulated with a 17F [employer] arterial cannula. The left femoral vein was cannulated with a 21 [employer] cannula under CHRISTINE guidance. Three Perclose devices were placed in the artery for later closure Antegrade Custodiol cardioplegia were employed. The patient was placed on cardiopulmonary bypass. An aortic cross-clamp was applied and the heart was arrested using cold blood cardioplegia delivered through a 14F catheter. The aorta was opened above the sinotubular ridge and the aortic valve was exposed. On opening the aorta, the valve appeared functionally bicuspid with heavily calcified leaflets. The valve was resected as well as all annular calcification , sized for a 23 mm Intuity tissue valve which was placed with 2-0 non pledgeted Tycron valve sutures. The valve seated well and was balloon deployed. The aorta was closed with running 4-0 Prolene suture. The patient systemically rewarmed. The heart was vigorously deaired with a clamp on. The clamp was removed, deairing continued. The patient was easily weaned from cardiopulmonary bypass. Decannulation was carried out without incident and both the femoral artery was closed with the Perclose devices and manual pressure. Protamine was given. There was no adverse reaction. Intraoperative CHRISTINE following the procedure showed a well-seated aortic valve with no perivalvular leak and preserved ventricular function. Wound was checked for hemostasis was obtained using electrocautery. The 3rd rib was reapproximated to the sternum using a plating system. The fascia and pectoralis were closed with 0 Vicryl. The subcutaneous tissue was closed using a running 3-0 Monocryl suture. The skin was closed with 4-0 Monocryl. The groin was closed in 2 layers. Sterile dressings were placed. At the end of the operation, all sponge, instruments, and needle counts were correct. The patient was transferred to the CVICU in stable condition. Enedelia Colon MD Jan 07, 2017 12:53
[2017-01-07] MEDS ORDERED: SODIUM BICARBONATE 8.4% SOLN 50 MEQ/50 ML VIAL IV PUSH PRN ×2 (14:00→14:15)
[2017-01-07] MEDS ORDERED: ONDANSETRON HCL 4 MG/2 ML VIAL IV PUSH PRN (14:00)
[2017-01-07] MEDS ORDERED: CALCIUM CHLORIDE 10% 1 GRAM/10 ML VIAL IV PUSH PRN (14:00)
[2017-01-07] MEDS ORDERED: METOPROLOL TARTRATE 5 MG/5 ML VIAL IV PUSH PRN (14:00)
[2017-01-07] MEDS ORDERED: CALCIUM CHLORIDE INJ 1 GM in SODIUM CHLORIDE 0.9% INJ 100 ML IV PRN (14:00)
[2017-01-07] MEDS ORDERED: ACETAMINOPHEN 325 MG TAB PO PRN (14:00)
[2017-01-07] MEDS ORDERED: ACETAMINOPHEN 650 MG SUPP RECTAL PRN (14:00)
[2017-01-07] MEDS ORDERED: RESP: RACEPINEPHRINE 2.25% 0.5 ML NEB NEB PRN (14:00)
[2017-01-07] MEDS ORDERED: CLEVIDIPINE INJ 50 ML IV PRN (14:00)
[2017-01-07] MEDS ORDERED: RESP: ALBUTEROL 2.5 MG/IPRATROPIUM 0.5 MG NEB (PRN) NEB (14:00)
[2017-01-07] MEDS: ACETAMINOPHEN 1000 MG/100 ML 100 ML IV SCH ×2 (14:14→20:00)
[2017-01-07] MEDS ORDERED: LACTATED RINGER'S 1000 ML INJ 500 ML IV PRN (14:15)
[2017-01-07] MEDS ORDERED: hydrALAZINE HCL 20 MG/ML VIAL IV PUSH PRN (14:15)
[2017-01-07] MEDS ORDERED: POTASSIUM CHLORIDE 20 MEQ CONTROLLED RELEASE TAB PO PRN ×2 (14:15)
[2017-01-07] MEDS ORDERED: POTASSIUM CHLOR 20 MEQ PREMIX 100 ML IV PRN ×3 (14:15)
--- NOTE | 2017-01-07 14:28 | RADRPT ---
EXAM DATE/TIME: 01/07/2017 13:29 [facility] COMPARISON: CHEST PA & LAT, December 21, 2016, 16:43. CTA TRANS AORTIC VALVE REPLACEMENT, December 21, 2016, 17:22 . INDICATIONS : S/.p cabg MEDICAL HISTORY : Hypertension. aortic stenosis, chronic kidney disease SURGICAL HISTORY : cardiac catherization ENCOUNTER: Initial ACUITY: 1 day PAIN SCORE: Non-responsive. LOCATION: Bilateral chest FINDINGS: Lytic valve, right chest tube, pacing leads and central venous catheter in good position. The left l sotero is clear. Side changes are seen on the right with chest tube evident. CONCLUSION: Postoperative changes as above the chest tube and consolidation changes on the right. Christian Emery MD FACR on January 07, 2017 at 14:24 Board Certified Radiologist. This report was verified electronically.
[2017-01-07] MEDS ORDERED: MAGNESIUM SULFATE INJ 2 GM in SODIUM CHLORIDE 0.9% INJ 100 ML IV PRN ×4 (14:30)
[2017-01-07] MEDS ORDERED: Post-op Orders (for Pharmacy) MISC OTHER ONE (14:45)
[2017-01-07] MEDS ORDERED: INSULIN REGULAR (IV INFUSION) 100 UNITS in SODIUM CHLORIDE 0.9% INJ 99 ML IV PRN (15:00)
[2017-01-07] MEDS: AMIODARONE 200 MG TAB PO SCH ×2 (15:00→23:16)
[2017-01-07] MEDS: ALBUMIN 5% INJ 250 ML IV PRN (15:02)
--- NOTE | 2017-01-07 16:30 | PD.CAR.PN ---
CVT Progress Note Subjective/Hospital Course: 71 year-old female complaining of shortness of breath and fatigue over the past month. Denied any chest pain. No syncope. She has a history of heart murmur that she has known for the last 10 years, was seen in the past by Dr. Le in [place], underwent echocardiogram on 11/30/2016 showing aortic valve gradient of 64 with aortic valve area 0.63, mild aortic valve regurgitation, severe aortic valve stenosis, mild tricuspid valve regurgitation , some left ventricular hypertrophy, EF of 60-65%, some grade 1 diastolic dysfunction. She underwent cardiac cath 12/22/16 which showed no evidence of obstructive disease, EF of 55%. We were consulted to evaluate for transcatheter aortic valve replacement versus aortic valve replacement. PAST MEDICAL HISTORY: Severe aortic stenosis, Coronary artery disease, Hypertension, Hyperlipidemia, History of prior GI bleed, Chronic kidney disease, surgery: 01/07 Minimally invasive AVR with a 23 Intuity tissue valve Ultrasound-guided left femoral artery and vein access with Perclose closure of the artery CHRISTINE Objective: Vital Signs Date Time Temp Pulse Resp B/P (MAP) Pulse Ox O2 Delivery O2 Flow Rate FiO2 01/07/17 16:03 99 Nasal Cannula 6.00 01/07/17 16:02 79 01/07/17 16:02 65 01/07/17 14:50 20 01/07/17 14:33 96.3 01/07/17 13:40 97 Simple Mask 6.00 01/07/17 13:19 95 Simple Mask 6.00 01/07/17 13:18 79 01/07/17 13:16 79 01/07/17 06:19 97.6 92 16 150/72 (98) 96 (1) Chronic kidney disease (2) Hyperlipemia (3) Hypertension (4) History of GI bleed (5) S/P AVR (aortic valve replacement) (6) Aortic stenosis (7) Diastolic CHF due to valvular disease Tita Hernandez Jan 07, 2017 16:30
--- NOTE | 2017-01-07 16:33 | HHI.FF ---
Face to Face Verification Diagnosis: (1) Aortic stenosis (2) Diastolic CHF due to valvular disease (3) Hyperlipemia (4) Hypertension (5) Chronic kidney disease (6) History of GI bleed (7) S/P AVR (aortic valve replacement) Physical Therapy Order: Evaluate and Treat Home Health Nursing Order: Signs/symptoms of disease process Medication education-adverse effect Wound care and dressing changes Nursing assessment with vital signs Instructions: *Special attention to sternal dressing Mandatory frequency Assess and evaluation, 4 days in a row The next week 3X week 2 times a week for 4 weeks 1 time a week for 5 weeks Schedule Heart and Vascular patients for full 60 day certification period Initial visit Review Open Heart Surgery Discharge Instructions (Sternal precautions, Activity, Elastic hose, Incision care, Driving, Incentive spirometry, Smoking, Leonidas, Work and other) Need Betadine to paint incision Medication reconciliation Importance of follow up care/ check on appointments Make calendar record temperature daily When to call [facility], review instructions, phone list Incentive Spirometry, demonstration Visit 1- Begin discharge instruction for patient family and/ or caregiver using teach back method- Signs and symptoms of infection Disease characteristics Medicines and side effects Foods and nutrition/ appetite Infection control/ hand washing/ hygiene Visit 2- Continue teaching Discharge instructions- include additional information on smoking cessation , sternal dressing (sternal vac) Visit 3- Continue teaching- Cough and deep breathing, incision monitoring. Choose my plate Visit 4- Continue teaching- Discuss limitations Discuss how they are feeling Discuss progress toward goals Remaining visits- continue teaching and monitoring Incentive spirometry Q1 hr x 10, while awake, also use acapella device hourly whole awake chest wall Precautions: NO pushing or pulling, ( pt must use chest pillow to support chest with all activities and with coughing All females to wear sternal bra , launder as needed Daily incision care: ok to shower daily, no tub bath. Wash all incisions with liquid dial soap, clean wash cloth to each site, rinse and pat dry. Observe for any signs of infection, such as drainage which is dark yellow, marte, green or foul smelling. Immediately report to the surgeon any drainage from the chest incision, or legs, and for any abnormal drainage from the chest tube sites. Notify surgeon if any temp >101.5 degrees F. When specialty dressing removed/ or if you do not have one, continue to shower daily as above, then rinse and pat incision dry and paint with betadine daily x 5 days. Allow steri strips to fall off if you have any. Avoid lotions, creams, salves, oils, etc. for the first month For Dr. Colon patients , please obtain CBC, BMP, PA & Lat CXR in 2 weeks, results to Dr. Colon ( prescription will be given) ( ) (Tele: [phone]) , Valve replacement pts will need 2decho in 2 weeks with results to Dr. Colon . Please obtain 2 d echo at your customer quality specialist office if possible F/U appointment: as per [place] instructions: PCP in 2 weeks, CV surgeon 2 weeks, Final Inspector 3-4 weeks For any questions regarding incisions/ dressing / meds / post op care or above Symptoms, Tuesday 8am-5pm Heart & Vascular Surgery Office ( Dr. Lipscomb & Dr. Colon), After Hours / Nights (5pm -8am) Weekends and Holidays Please call [facility] ([facility]) Charge Nurse I have seen patient Marbella James on 01/07/17. My clinical findings support the need for the requested home health care services because: Deconditioned w/ increased weakness I certify that my clinical findings support that this patient is homebound because: Post-op weakness Tita Hernandez Jan 07, 2017 16:33
--- NOTE | 2017-01-07 18:03 | EKG ---
Date Performed: 01/07/2017 Time Performed: 06:07:01 PTAGE: 71 years EKG: Sinus rhythm MARKED LEFT AXIS DEVIATION INCOMPLETE RIGHT BUNDLE BRANCH BLOCK ABNORMAL ECG PREVIOUS TRACING : 12/04/1997 09.03 DOCTOR: Gisselle Olea Interpretating Date/Time 01/07/2017 18:00:58
[2017-01-07] MEDS: oxyCODONE/ACETAMINOPHEN 5 MG/325 MG TAB PO PRN ×2 (19:33→23:16)
[2017-01-07] MEDS: SODIUM CHLORIDE 0.9% FLUSH 10 ML FLUSH IV FLUSH SCH (21:00)
[2017-01-08] VITALS (13 sets, daily range): BP systolic 103–148; BP diastolic 37–67; PULSE 56–69; RESP 12–22; TEMP 97–98.6; O2SAT 92–98
[2017-01-08] MEDS: ALBUMIN 5% INJ 250 ML IV PRN
[2017-01-08] MEDS: INSULIN REGULAR 100 UNITS in NS 100 ML IV PRN (01:19)
[2017-01-08] MEDS: ACETAMINOPHEN 1000 MG/100 ML 100 ML IV SCH ×2 (01:20→08:22)
[2017-01-08] MEDS: oxyCODONE/ACETAMINOPHEN 5 MG/325 MG TAB PO PRN ×4 (04:14→19:57)
--- NOTE | 2017-01-08 05:19 | RADRPT ---
EXAM DATE/TIME: 01/08/2017 04:35 [facility] COMPARISON: CHEST SINGLE AP, January 07, 2017, 13:29. INDICATIONS : Shortness of breath, CABG MEDICAL HISTORY : Hypertension. Aortic Stenosis, Kidney disease SURGICAL HISTORY : CABG. ENCOUNTER: Subsequent ACUITY: 2 days PAIN SCORE: 7/10 LOCATION: Bilateral chest FINDINGS: The cardiac silhouette is enlarged in transverse diameter. There are findings of congestive heart colt lure with interstitial and alveolar opacity bilaterally. A moderate size right sided effusion is pres ent. CONCLUSION: 1. Cardiomegaly and findings of congestive heart failure. There has been no significant change when c ompared to the prior exam. Norberto Kunz MD on January 08, 2017 at 5:17 Board Certified Radiologist. This report was verified electronically.
[2017-01-08 05:24] LABS: BICARBONATE 24.8 MEQ/L (21.0-32.0); POTASSIUM 4.1 MEQ/L (3.5-5.1)
[2017-01-08 05:51] LABS: MEAN CELL VOLUME 90.7 FL (80.0-100.0); MEAN CORPUSCULAR HEMOGLOBIN 30.7 PG (27.0-34.0); MEAN CORPUSCULAR HGB CONC 33.9 % (32.0-36.0); PLATELET COUNT 108 TH/MM3 (150-450); RED BLOOD COUNT 2.06 MIL/MM3 (4.00-5.30); RED CELL DISTRIBUTION WIDTH 13.8 % (11.6-17.2)
[2017-01-08 05:55] LABS: REVIEW FLAG FINAL
[2017-01-08 05:58] LABS: HEMATOCRIT 18.7 % (35.0-46.0)
[2017-01-08] MEDS: AMIODARONE 200 MG TAB PO SCH ×3 (06:45→22:26)
[2017-01-08] MEDS: PANTOPRAZOLE SOD 40 MG DELAYED RELEASE TAB PO SCH (06:45)
[2017-01-08] MEDS ORDERED: FUROSEMIDE 40 MG/4 ML VIAL IV PUSH SCH (07:45)
--- NOTE | 2017-01-08 08:02 | PD.CAR.PN ---
CVT Progress Note CVT: POD #: 1 Subjective/Hospital Course: 71 year-old female complaining of shortness of breath and fatigue over the past month. Denied any chest pain. No syncope. She has a history of heart murmur that she has known for the last 10 years, was seen in the past by Dr. Le in [place], underwent echocardiogram on 11/30/2016 showing aortic valve gradient of 64 with aortic valve area 0.63, mild aortic valve regurgitation, severe aortic valve stenosis, mild tricuspid valve regurgitation , some left ventricular hypertrophy, EF of 60-65%, some grade 1 diastolic dysfunction. She underwent cardiac cath 12/22/16 which showed no evidence of obstructive disease, EF of 55%. We were consulted to evaluate for transcatheter aortic valve replacement versus aortic valve replacement. PAST MEDICAL HISTORY: Severe aortic stenosis, Coronary artery disease, Hypertension, Hyperlipidemia, History of prior GI bleed, Chronic kidney disease, surgery: 01/07 Minimally invasive AVR with a 23 Intuity tissue valve Ultrasound-guided left femoral artery and vein access with Perclose closure of the artery CHRISTINE 01/08/17 c/o right choulder and back pain., anemic Objective: Vital Signs Date Time Temp Pulse Resp B/P (MAP) Pulse Ox O2 Delivery O2 Flow Rate FiO2 01/08/17 06:40 97.0 63 14 131/45 98 01/08/17 06:26 97.6 69 16 134/43 97 01/08/17 04:00 95 Nasal Cannula 2.00 01/08/17 04:00 72 01/08/17 03:00 62 01/08/17 03:00 98.2 63 16 119/53 (75) 97 143/37 (72) 01/08/17 00:00 62 01/08/17 00:00 98 Nasal Cannula 2.00 01/07/17 23:00 98.4 64 12 126/64 (84) 96 135/51 (79) 01/07/17 23:00 61 01/07/17 21:31 97 Nasal Cannula 3.00 01/07/17 21:00 98 Nasal Cannula 3.00 01/07/17 20:00 99 Nasal Cannula 4.00 01/07/17 20:00 74 01/07/17 19:15 99 Nasal Cannula 5.00 01/07/17 19:00 97.8 68 16 99/62 (74) 99 108/52 (70) 01/07/17 19:00 69 01/07/17 18:18 98.6 01/07/17 18:13 18 01/07/17 16:03 99 Nasal Cannula 6.00 01/07/17 16:02 79 01/07/17 16:02 65 01/07/17 14:50 20 01/07/17 14:33 96.3 01/07/17 13:40 97 Simple Mask 6.00 01/07/17 13:19 95 Simple Mask 6.00 01/07/17 13:18 79 01/07/17 13:16 79 Labs: Laboratory Tests Test 01/08/17 04:15 White Blood Count 10.0 TH/MM3 (4.0-11.0) Red Blood Count 2.06 MIL/MM3 (4.00-5.30) Hemoglobin 6.3 GM/DL (11.6-15.3) Hematocrit 18.7 % (35.0-46.0) Mean Corpuscular Volume 90.7 FL (80.0-100.0) Mean Corpuscular Hemoglobin 30.7 PG (27.0-34.0) Mean Corpuscular Hemoglobin Concent 33.9 % (32.0-36.0) Red Cell Distribution Width 13.8 % (11.6-17.2) Platelet Count 108 TH/MM3 (150-450) Mean Platelet Volume 9.2 FL (7.0-11.0) Blood Urea Nitrogen 19 MG/DL (7-18) Creatinine 0.52 MG/DL (0.50-1.00) Random Glucose 99 MG/DL (74-106) Calcium Level 8.2 MG/DL (8.5-10.1) Magnesium Level 2.0 MG/DL (1.5-2.5) Sodium Level 144 MEQ/L (136-145) Potassium Level 4.1 MEQ/L (3.5-5.1) Chloride Level 110 MEQ/L (98-107) Carbon Dioxide Level 24.8 MEQ/L (21.0-32.0) Anion Gap 9 MEQ/L (5-15) Estimat Glomerular Filtration Rate 116 ML/MIN (>89) Result Diagram: 01/08/17 0415 01/08/17 0415 Imaging: Last 24 hours Impressions Chest X-Ray 01/08/17 0500 Signed Impressions: Service Date/Time: Sunday, January 08, 2017 04:35 - CONCLUSION: 1. Cardiomegaly and findings of congestive heart failure. There has been no significant change when compared to the prior exam. Norberto Kunz MD Cardiovascular: RRR Telemetry: NSR Pulmonary: CTA GI/: NABS, NT Incision: dry and intact CT: ~800ml since OR Plan: Transfer to stepdown Transfuse 2 u pRBC, diurese Continue chest tubes Advance diet D/C wu Encourage ambulation, up to chair (1) Chronic kidney disease (2) Hyperlipemia (3) Hypertension (4) History of GI bleed (5) S/P AVR (aortic valve replacement) (6) Aortic stenosis (7) Diastolic CHF due to valvular disease Enedelia Colon MD Jan 08, 2017 08:02
[2017-01-08] MEDS ORDERED: GLUCAGON 1 MG/ML VIAL OTHER PRN (08:15)
[2017-01-08] MEDS ORDERED: DEXTROSE 50% IN WATER 50 ML VIAL(D50) IV PUSH PRN (08:15)
[2017-01-08] MEDS ORDERED: BISACODYL 10 MG SUPP RECTAL PRN (08:15)
[2017-01-08] MEDS ORDERED: PILL SPLITTER OTHER PRN (08:30)
[2017-01-08] MEDS ORDERED: MULTIVITAMIN INJ 10 ML, THIAMINE INJ 500 MG, FOLIC ACID INJ 1 MG in SODIUM CHLORID 0.9%... IV SCH (09:00)
[2017-01-08] MEDS: MUPIROCIN 2% OINT 22 GM TUBE EACH NARE SCH ×2 (09:00→21:00)
[2017-01-08] MEDS: SODIUM CHLORIDE 0.9% FLUSH 10 ML FLUSH IV FLUSH SCH ×2 (09:00→22:27)
[2017-01-08] MEDS ORDERED: NON-FORMULARY DRUG (Fish Oil-Cholecalciferol (Omega-3 Fish Oil/Vitamin) 1 CAP) PO SCH (09:00)
[2017-01-08] MEDS: MAGNESIUM HYDROXIDE SUSP 30 ML CUP PO SCH (09:51)
[2017-01-08] MEDS: ASPIRIN 81 MG CHEW TAB PO SCH (09:51)
[2017-01-08] MEDS: MULTIVITAMINS/MINERALS THERAPEUTIC TAB PO SCH (09:51)
[2017-01-08] MEDS: FERROUS SULFATE 325 MG (65 MG ELEMENTAL IRON) TAB PO SCH (09:51)
[2017-01-08] MEDS: PRAVASTATIN SOD 40 MG TAB PO SCH (09:51)
[2017-01-08] MEDS: METOPROLOL TARTRATE 25 MG TAB PO SCH ×2 (09:52→22:25)
[2017-01-08] MEDS: INSULIN ASPART SUPPLEMENTAL SCALE SQ SCH ×4 (10:00→22:00)
[2017-01-08] MEDS ORDERED: INSULIN DETEMIR 100 UNITS/ML VIAL SQ ONE (12:15)
[2017-01-08 17:15] LABS: HEMATOCRIT 25.8 % (35.0-46.0); REVIEW FLAG FINAL
[2017-01-08] MEDS: DOCUSATE SODIUM 100 MG CAP PO SCH (22:25)
[2017-01-08] MEDS: SENNOSIDES 8.6 MG TAB PO SCH (22:25)
[2017-01-09] VITALS (10 sets, daily range): BP systolic 100–122; BP diastolic 48–60; PULSE 58–73; RESP 14–20; TEMP 97.9–98.6; O2SAT 93–98
[2017-01-09] MEDS: INSULIN ASPART SUPPLEMENTAL SCALE SQ SCH ×6 (02:00→21:00)
[2017-01-09 04:50] LABS: AUTOMATED NEUTROPHIL # 11.4 TH/MM3 (1.8-7.7); BASOPHIL % 0.2 % (0.0-2.0); EOSINOPHIL # 0.1 TH/MM3 (0-0.4); EOSINOPHIL % 0.4 % (0.0-4.0); HEMO FLAGS DIFF FINAL; LYMPH % 9.3 % (9.0-44.0); LYMPHOCYTE # 1.3 TH/MM3 (1.0-4.8); MEAN CELL VOLUME 86.6 FL (80.0-100.0); MEAN CORPUSCULAR HEMOGLOBIN 30.4 PG (27.0-34.0); MEAN CORPUSCULAR HGB CONC 35.1 % (32.0-36.0); MONO % 8.7 % (0.0-8.0); NEUT % 81.4 % (16.0-70.0); PLATELET COUNT 113 TH/MM3 (150-450); RED BLOOD COUNT 2.77 MIL/MM3 (4.00-5.30); WHITE BLOOD COUNT 14.1 TH/MM3 (4.0-11.0)
[2017-01-09 05:12] LABS: BICARBONATE 31.2 MEQ/L (21.0-32.0); MAGNESIUM 2.2 MG/DL (1.5-2.5); POTASSIUM 4.1 MEQ/L (3.5-5.1)
[2017-01-09] MEDS: oxyCODONE/ACETAMINOPHEN 5 MG/325 MG TAB PO PRN ×2 (05:13→23:32)
--- NOTE | 2017-01-09 05:33 | RADRPT ---
EXAM DATE/TIME: 01/09/2017 04:46 [facility] COMPARISON: CHEST SINGLE AP, January 08, 2017, 4:35. INDICATIONS : Evaluate for Plueral Effusion MEDICAL HISTORY : Hypertension. Aortic Stenosis, Kidney Disease SURGICAL HISTORY : CABG. ENCOUNTER: Subsequent ACUITY: 3 days PAIN SCORE: Non-responsive. LOCATION: Bilateral chest FINDINGS: The cardiac silhouette is enlarged in transverse diameter. There are findings of congestive heart colt lure with interstitial and alveolar opacity bilaterally. There has been no significant change when co mpared to the prior exam. Moderate size bilateral pleural effusions are identified. A right chest tub e is in place. There is no evidence of pneumothorax. CONCLUSION: 1. Cardiomegaly and findings of congestive heart failure. There has been no significant change when c ompared to the prior exam. 2. Moderate bilateral effusions Norberto Kunz MD on January 09, 2017 at 5:31 Board Certified Radiologist. This report was verified electronically.
[2017-01-09] MEDS: AMIODARONE 200 MG TAB PO SCH ×2 (06:00→20:43)
[2017-01-09] MEDS: PANTOPRAZOLE SOD 40 MG DELAYED RELEASE TAB PO SCH (06:00)
[2017-01-09] MEDS: SODIUM CHLORIDE 0.9% FLUSH 10 ML FLUSH IV FLUSH SCH ×2 (09:00→20:41)
[2017-01-09] MEDS: MUPIROCIN 2% OINT 22 GM TUBE EACH NARE SCH ×2 (09:00→20:48)
[2017-01-09] MEDS: POLYETHYLENE GLYCOL 17 GM PKG PO SCH (09:18)
[2017-01-09] MEDS: MAGNESIUM HYDROXIDE SUSP 30 ML CUP PO SCH (09:18)
[2017-01-09] MEDS: DOCUSATE SODIUM 100 MG CAP PO SCH ×2 (09:19→20:44)
[2017-01-09] MEDS: MULTIVITAMINS/MINERALS THERAPEUTIC TAB PO SCH (09:19)
[2017-01-09] MEDS: PRAVASTATIN SOD 40 MG TAB PO SCH (09:19)
[2017-01-09] MEDS: ASPIRIN 81 MG CHEW TAB PO SCH (09:19)
[2017-01-09] MEDS: FERROUS SULFATE 325 MG (65 MG ELEMENTAL IRON) TAB PO SCH (09:19)
[2017-01-09] MEDS: METOPROLOL TARTRATE 25 MG TAB PO SCH ×2 (09:19→20:45)
--- NOTE | 2017-01-09 11:12 | PD.CAR.PN ---
CVT Progress Note CVT: POD #: 2 Subjective/Hospital Course: 71 year-old female complaining of shortness of breath and fatigue over the past month. Denied any chest pain. No syncope. She has a history of heart murmur that she has known for the last 10 years, was seen in the past by Dr. Le in [place], underwent echocardiogram on 11/30/2016 showing aortic valve gradient of 64 with aortic valve area 0.63, mild aortic valve regurgitation, severe aortic valve stenosis, mild tricuspid valve regurgitation , some left ventricular hypertrophy, EF of 60-65%, some grade 1 diastolic dysfunction. She underwent cardiac cath 12/22/16 which showed no evidence of obstructive disease, EF of 55%. We were consulted to evaluate for transcatheter aortic valve replacement versus aortic valve replacement. PAST MEDICAL HISTORY: Severe aortic stenosis, Coronary artery disease, Hypertension, Hyperlipidemia, History of prior GI bleed, Chronic kidney disease, surgery: 01/07 Minimally invasive AVR with a 23 Intuity tissue valve Ultrasound-guided left femoral artery and vein access with Perclose closure of the artery CHRISTINE 01/08/17 c/o right choulder and back pain., anemic 01/09/17 c/o right shoulder pain Objective: Vital Signs Date Time Temp Pulse Resp B/P (MAP) Pulse Ox O2 Delivery O2 Flow Rate FiO2 01/09/17 08:00 98 Nasal Cannula 2.00 01/09/17 08:00 94 Nasal Cannula 2.00 01/09/17 08:00 67 01/09/17 07:00 98.1 68 14 106/48 (67) 95 01/09/17 06:15 18 01/09/17 04:00 74 01/09/17 04:00 95 Nasal Cannula 1.00 01/09/17 03:00 98.4 70 20 107/52 (70) 95 01/09/17 03:00 70 01/09/17 00:00 96 Nasal Cannula 1.00 01/09/17 00:00 59 01/08/17 23:00 97.9 64 20 103/46 (65) 97 01/08/17 23:00 59 01/08/17 21:02 95 Nasal Cannula 3.00 01/08/17 20:00 94 Nasal Cannula 1.00 01/08/17 20:00 67 01/08/17 19:00 67 01/08/17 19:00 98.6 67 22 136/42 (73) 92 01/08/17 16:00 67 01/08/17 16:00 94 Nasal Cannula 1.00 01/08/17 15:00 98.3 59 14 120/54 (76) 94 01/08/17 15:00 59 01/08/17 14:17 14 01/08/17 12:26 92 Nasal Cannula 1.00 01/08/17 12:00 56 01/08/17 12:00 95 Nasal Cannula 1.00 Labs: Laboratory Tests Test 01/09/17 04:30 White Blood Count 14.1 TH/MM3 (4.0-11.0) Red Blood Count 2.77 MIL/MM3 (4.00-5.30) Hemoglobin 8.4 GM/DL (11.6-15.3) Hematocrit 24.0 % (35.0-46.0) Mean Corpuscular Volume 86.6 FL (80.0-100.0) Mean Corpuscular Hemoglobin 30.4 PG (27.0-34.0) Mean Corpuscular Hemoglobin Concent 35.1 % (32.0-36.0) Red Cell Distribution Width 15.0 % (11.6-17.2) Platelet Count 113 TH/MM3 (150-450) Mean Platelet Volume 9.0 FL (7.0-11.0) Neutrophils (%) (Auto) 81.4 % (16.0-70.0) Lymphocytes (%) (Auto) 9.3 % (9.0-44.0) Monocytes (%) (Auto) 8.7 % (0.0-8.0) Eosinophils (%) (Auto) 0.4 % (0.0-4.0) Basophils (%) (Auto) 0.2 % (0.0-2.0) Neutrophils # (Auto) 11.4 TH/MM3 (1.8-7.7) Lymphocytes # (Auto) 1.3 TH/MM3 (1.0-4.8) Monocytes # (Auto) 1.2 TH/MM3 (0-0.9) Eosinophils # (Auto) 0.1 TH/MM3 (0-0.4) Basophils # (Auto) 0.0 TH/MM3 (0-0.2) CBC Comment DIFF FINAL Differential Comment Blood Urea Nitrogen 18 MG/DL (7-18) Creatinine 0.67 MG/DL (0.50-1.00) Random Glucose 93 MG/DL (74-106) Calcium Level 8.0 MG/DL (8.5-10.1) Magnesium Level 2.2 MG/DL (1.5-2.5) Sodium Level 141 MEQ/L (136-145) Potassium Level 4.1 MEQ/L (3.5-5.1) Chloride Level 105 MEQ/L (98-107) Carbon Dioxide Level 31.2 MEQ/L (21.0-32.0) Anion Gap 5 MEQ/L (5-15) Estimat Glomerular Filtration Rate 87 ML/MIN (>89) Result Diagram: 01/09/1742901/09/17 043 Imaging: Last 24 hours Impressions Chest X-Ray 01/09/17 0600 Signed Impressions: Service Date/Time: Monday, January 09, 2017 04:46 - CONCLUSION: 1. Cardiomegaly and findings of congestive heart failure. There has been no significant change when compared to the prior exam. 2. Moderate bilateral effusions Norberto Kunz MD Cardiovascular: RRR Telemetry: NSR Pulmonary: Decreased BS bilat GI/: NABS, NT Incision: dry and intact CT: ~140/24hrs Plan: D/C pacing wires and chest tube Up to chair/ambulate x 6 - pulmonary toilet Diurese Supp K Decrease amio dose to 200 bid. Stim BM (1) Chronic kidney disease (2) Hyperlipemia (3) Hypertension (4) History of GI bleed (5) S/P AVR (aortic valve replacement) (6) Aortic stenosis (7) Diastolic CHF due to valvular disease Enedelia Colon MD Jan 09, 2017 11:12
[2017-01-09] MEDS: POTASSIUM CHLORIDE 10 MEQ CONTROLLED RELEASE TAB PO SCH ×2 (11:15→20:42)
[2017-01-09] MEDS: FUROSEMIDE 40 MG/4 ML VIAL IV PUSH SCH (18:00)
[2017-01-09] MEDS: SENNOSIDES 8.6 MG TAB PO SCH (20:44)
[2017-01-10] VITALS (25 sets, daily range): BP systolic 108–133; BP diastolic 53–63; PULSE 58–90; RESP 16–18; TEMP 97.4–98.4; O2SAT 93–97
[2017-01-10] MEDS: INSULIN ASPART SUPPLEMENTAL SCALE SQ SCH ×6 (02:00→21:00)
[2017-01-10] MEDS: PANTOPRAZOLE SOD 40 MG DELAYED RELEASE TAB PO SCH (06:06)
--- NOTE | 2017-01-10 06:22 | RADRPT ---
EXAM DATE/TIME: 01/10/2017 05:06 [facility] COMPARISON: CHEST SINGLE AP, January 09, 2017, 4:46. INDICATIONS : Short of breath. MEDICAL HISTORY : Hypertension. Aortic Stenosis, Kidney Disease SURGICAL HISTORY : CABG. ENCOUNTER: Subsequent ACUITY: 2 weeks PAIN SCORE: 0/10 LOCATION: Bilateral chest FINDINGS: A single view of the chest demonstrates bilateral lower lobe infiltrates right greater left. Right IJ central line in good position. The cardiac silhouette is slightly widened . Osseous structures are intact. CONCLUSION: Infiltrate right lung base remains. Upper lungs are clear. Alfredo Holcomb MD on January 10, 2017 at 6:19 Board Certified Radiologist. This report was verified electronically.
[2017-01-10] MEDS: POLYETHYLENE GLYCOL 17 GM PKG PO SCH (08:44)
[2017-01-10] MEDS: DOCUSATE SODIUM 100 MG CAP PO SCH ×2 (08:46→20:57)
[2017-01-10] MEDS: FERROUS SULFATE 325 MG (65 MG ELEMENTAL IRON) TAB PO SCH (08:46)
[2017-01-10] MEDS: ASPIRIN 81 MG CHEW TAB PO SCH (08:46)
[2017-01-10] MEDS: AMIODARONE 200 MG TAB PO SCH ×2 (08:46→20:57)
[2017-01-10] MEDS: MAGNESIUM HYDROXIDE SUSP 30 ML CUP PO SCH (08:46)
[2017-01-10] MEDS: POTASSIUM CHLORIDE 10 MEQ CONTROLLED RELEASE TAB PO SCH ×2 (08:47→20:57)
[2017-01-10] MEDS: PRAVASTATIN SOD 40 MG TAB PO SCH (08:47)
[2017-01-10] MEDS: METOPROLOL TARTRATE 25 MG TAB PO SCH ×2 (08:47→20:56)
[2017-01-10] MEDS: MULTIVITAMINS/MINERALS THERAPEUTIC TAB PO SCH (08:47)
[2017-01-10] MEDS: FUROSEMIDE 40 MG/4 ML VIAL IV PUSH SCH ×2 (08:47→17:14)
[2017-01-10] MEDS: SODIUM CHLORIDE 0.9% FLUSH 10 ML FLUSH IV FLUSH SCH ×2 (08:48→20:57)
[2017-01-10] MEDS: MUPIROCIN 2% OINT 22 GM TUBE EACH NARE SCH ×2 (08:48→20:57)
--- NOTE | 2017-01-10 14:04 | PD.CAR.PN ---
CVT Progress Note Subjective/Hospital Course: 71 year-old female complaining of shortness of breath and fatigue over the past month. Denied any chest pain. No syncope. She has a history of heart murmur that she has known for the last 10 years, was seen in the past by Dr. Le in [place], underwent echocardiogram on 11/30/2016 showing aortic valve gradient of 64 with aortic valve area 0.63, mild aortic valve regurgitation, severe aortic valve stenosis, mild tricuspid valve regurgitation , some left ventricular hypertrophy, EF of 60-65%, some grade 1 diastolic dysfunction. She underwent cardiac cath 12/22/16 which showed no evidence of obstructive disease, EF of 55%. We were consulted to evaluate for transcatheter aortic valve replacement versus aortic valve replacement. PAST MEDICAL HISTORY: Severe aortic stenosis, Coronary artery disease, Hypertension, Hyperlipidemia, History of prior GI bleed, Chronic kidney disease, surgery: 01/07 Minimally invasive AVR with a 23 Intuity tissue valve Ultrasound-guided left femoral artery and vein access with Perclose closure of the artery CHRISTINE 01/08/17 c/o right shoulder and back pain., anemic 01/09/17 c/o right shoulder pain 01/10 right shoulder pain, slight improvement , add K pad , no deformity noted to tight shoulder, + tenderness over right rhomboid area/ scapula / muscular needs aggressive pulm toileting , atelectasis right lower lobe on room air eval for dc in am , continue pulm toileting Objective: GENERAL: SKIN: Warm and dry. 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 EYES: No scleral icterus. No injection or drainage. NECK: Supple, trachea midline. No JVD or lymphadenopathy. CARDIOVASCULAR: Regular rate and rhythm without murmurs, gallops, or rubs. RESPIRATORY: Breath sounds equal bilaterally. No accessory muscle use. GASTROINTESTINAL: Abdomen soft, non-tender, nondistended. MUSCULOSKELETAL: No cyanosis, or edema. BACK: Nontender without obvious deformity. No CVA tenderness. Vital Signs Date Time Temp Pulse Resp B/P (MAP) Pulse Ox O2 Delivery O2 Flow Rate FiO2 01/10/17 13:07 79 01/10/17 12:04 73 01/10/17 11:35 98.3 74 18 133/63 (86) 94 11/13/17 11:35 71 01/10/17 11:35 94 Room Air 01/10/17 10:24 84 01/10/17 10:09 93 01/10/17 09:00 82 01/10/17 08:15 95 Room Air 01/10/17 08:15 67 01/10/17 08:15 97.4 71 16 114/53 (73) 95 01/10/17 05:05 72 01/10/17 04:08 68 01/10/17 04:07 95 Nasal Cannula 1.00 01/10/17 03:11 98.4 69 16 108/55 (72) 95 01/10/17 03:00 58 01/10/17 02:05 63 01/10/17 01:08 62 01/10/17 00:42 18 01/10/17 00:04 93 Nasal Cannula 1.00 01/10/17 00:01 63 01/09/17 23:00 98.2 67 17 122/58 (79) 93 01/09/17 23:00 58 01/09/17 22:00 62 01/09/17 21:00 64 01/09/17 20:00 60 01/09/17 20:00 97 Nasal Cannula 1.00 01/09/17 19:00 97.9 65 18 110/58 (75) 97 01/09/17 19:00 63 01/09/17 16:00 98 Nasal Cannula 2.00 01/09/17 15:00 73 01/09/17 15:00 98.6 73 16 115/60 (78) 97 Result Diagram: 01/09/1742901/09/17429 (1) Chronic kidney disease Plan: indices stable (2) Hyperlipemia Plan: on statin (3) S/P AVR (aortic valve replacement) Plan: ASA pulm toielting nebs, ezpap , acapella OOB (4) Hypertension (5) History of GI bleed (6) Aortic stenosis (7) Diastolic CHF due to valvular disease Plan: EF 55 % Tita Hernandez Jan 10, 2017 14:04
[2017-01-10] MEDS: oxyCODONE/ACETAMINOPHEN 5 MG/325 MG TAB PO PRN (20:56)
[2017-01-10] MEDS: SENNOSIDES 8.6 MG TAB PO SCH (20:57)
[2017-01-11] VITALS (15 sets, daily range): BP systolic 101–114; BP diastolic 50–59; PULSE 64–106; RESP 17–19; TEMP 98.2–98.3; O2SAT 93–96
[2017-01-11 05:04] LABS: AUTOMATED NEUTROPHIL # 7.4 TH/MM3 (1.8-7.7); BASOPHIL % 0.5 % (0.0-2.0); EOSINOPHIL # 0.2 TH/MM3 (0-0.4); HEMATOCRIT 25.2 % (35.0-46.0); HEMO FLAGS DIFF FINAL; LYMPH % 16.8 % (9.0-44.0); LYMPHOCYTE # 1.7 TH/MM3 (1.0-4.8); MEAN CELL VOLUME 89.3 FL (80.0-100.0); MEAN CORPUSCULAR HGB CONC 34.8 % (32.0-36.0); MONO % 9.1 % (0.0-8.0); NEUT % 71.6 % (16.0-70.0); PLATELET COUNT 153 TH/MM3 (150-450); RED BLOOD COUNT 2.82 MIL/MM3 (4.00-5.30); RED CELL DISTRIBUTION WIDTH 14.7 % (11.6-17.2); WHITE BLOOD COUNT 10.3 TH/MM3 (4.0-11.0)
[2017-01-11 05:28] LABS: MAGNESIUM 2.4 MG/DL (1.5-2.5); POTASSIUM 3.8 MEQ/L (3.5-5.1)
[2017-01-11] MEDS: PANTOPRAZOLE SOD 40 MG DELAYED RELEASE TAB PO SCH (06:01)
[2017-01-11] MEDS: INSULIN ASPART SUPPLEMENTAL SCALE SQ SCH ×2 (08:00→12:00)
[2017-01-11] MEDS: MAGNESIUM HYDROXIDE SUSP 30 ML CUP PO SCH (09:00)
[2017-01-11] MEDS: POLYETHYLENE GLYCOL 17 GM PKG PO SCH (09:00)
[2017-01-11] MEDS: DOCUSATE SODIUM 100 MG CAP PO SCH (09:14)
[2017-01-11] MEDS: PRAVASTATIN SOD 40 MG TAB PO SCH (09:14)
[2017-01-11] MEDS: ASPIRIN 81 MG CHEW TAB PO SCH (09:14)
[2017-01-11] MEDS: FERROUS SULFATE 325 MG (65 MG ELEMENTAL IRON) TAB PO SCH (09:15)
[2017-01-11] MEDS: AMIODARONE 200 MG TAB PO SCH (09:15)
[2017-01-11] MEDS: MULTIVITAMINS/MINERALS THERAPEUTIC TAB PO SCH (09:15)
[2017-01-11] MEDS: METOPROLOL TARTRATE 25 MG TAB PO SCH (09:15)
[2017-01-11] MEDS: POTASSIUM CHLORIDE 10 MEQ CONTROLLED RELEASE TAB PO SCH (09:16)
[2017-01-11] MEDS: SODIUM CHLORIDE 0.9% FLUSH 10 ML FLUSH IV FLUSH SCH (09:16)
[2017-01-11] MEDS: FUROSEMIDE 40 MG/4 ML VIAL IV PUSH SCH (09:16)
[2017-01-11] MEDS ORDERED: POTASSIUM CHLORIDE 20 MEQ CONTROLLED RELEASE TAB PO ONE (11:30)
[2017-01-11] MEDS ORDERED: FURO1TAB60 PO (11:40)
[2017-01-11] MEDS ORDERED: POTA-163 PO (11:40)
[2017-01-11] MEDS ORDERED: AMIO200T PO (11:40)
[2017-01-11] MEDS ORDERED: OXYC1TAB63 PO (11:40)
[2017-01-11] MEDS ORDERED: METO25TA3 PO (11:40)
[2017-01-11] MEDS ORDERED: THERM PO (11:40)
[2017-01-11] MEDS ORDERED: DOCU1CAP39 PO (11:40)
--- NOTE | 2017-01-11 15:36 | HHI.DS ---
Discharge Summary Admission Date Jan 07, 2017 at 05:27 Discharge Date: Jan 11, 2017 Admitting Diagnosis 1) Aortic stenosis (2) Diastolic CHF due to valvular disease (1) Aortic stenosis Diagnosis: Principal ICD Codes: I35.0 - Nonrheumatic aortic (valve) stenosis (2) Diastolic CHF due to valvular disease Diagnosis: Secondary ICD Codes: I38 - Endocarditis, valve unspecified; I50.30 - Unspecified diastolic (congestive) heart failure (3) Hyperlipemia ICD Codes: E78.5 - Hyperlipidemia, unspecified (4) Hypertension Diagnosis: Principal ICD Codes: I10 - Essential (primary) hypertension (5) Chronic kidney disease Diagnosis: Principal ICD Codes: N18.9 - Chronic kidney disease, unspecified (6) History of GI bleed Diagnosis: Principal ICD Codes: Z87.19 - Personal history of other diseases of the digestive system (7) S/P AVR (aortic valve replacement) Diagnosis: Secondary ICD Codes: Z95.2 - Presence of prosthetic heart valve Procedures Minimally invasive AVR with a 23 Intuity tissue valve Ultrasound-guided left femoral artery and vein access with Perclose closure of the artery CHRISTINE Brief History Subjective/Hospital Course: 71 year-old female complaining of shortness of breath and fatigue over the past month. Denied any chest pain. No syncope. She has a history of heart murmur that she has known for the last 10 years, was seen in the past by Dr. Le in [place], underwent echocardiogram on 11/30/2016 showing aortic valve gradient of 64 with aortic valve area 0.63, mild aortic valve regurgitation, severe aortic valve stenosis, mild tricuspid valve regurgitation , some left ventricular hypertrophy, EF of 60-65%, some grade 1 diastolic dysfunction. She underwent cardiac cath 12/22/16 which showed no evidence of obstructive disease, EF of 55%. We were consulted to evaluate for transcatheter aortic valve replacement versus aortic valve replacement. PAST MEDICAL HISTORY: Severe aortic stenosis, Coronary artery disease, Hypertension, Hyperlipidemia, History of prior GI bleed, Chronic kidney disease, surgery: 01/07 Minimally invasive AVR with a 23 Intuity tissue valve Ultrasound-guided left femoral artery and vein access with Perclose closure of the artery CHRISTINE CBC/BMP: 01/11/17 0345 01/11/17 0345 Significant Findings Laboratory Tests Test 01/08/17 16:45 01/09/17 04:30 01/11/17 03:45 Hemoglobin 9.2 GM/DL (11.6-15.3) 8.4 GM/DL (11.6-15.3) 8.8 GM/DL (11.6-15.3) Hematocrit 25.8 % (35.0-46.0) 24.0 % (35.0-46.0) 25.2 % (35.0-46.0) White Blood Count 14.1 TH/MM3 (4.0-11.0) Red Blood Count 2.77 MIL/MM3 (4.00-5.30) 2.82 MIL/MM3 (4.00-5.30) Platelet Count 113 TH/MM3 (150-450) Neutrophils (%) (Auto) 81.4 % (16.0-70.0) 71.6 % (16.0-70.0) Monocytes (%) (Auto) 8.7 % (0.0-8.0) 9.1 % (0.0-8.0) Neutrophils # (Auto) 11.4 TH/MM3 (1.8-7.7) Monocytes # (Auto) 1.2 TH/MM3 (0-0.9) Calcium Level 8.0 MG/DL (8.5-10.1) Estimat Glomerular Filtration Rate 87 ML/MIN (>89) Imaging Last Impressions Chest X-Ray 01/10/17 0600 Signed Impressions: Service Date/Time: Tuesday, January 10, 2017 05:06 - CONCLUSION: Infiltrate right lung base remains. Upper lungs are clear. Alfredo Holcomb MD PE at Discharge GENERAL: SKIN: Warm and dry. incision intact and well approximated right upper chest wall HEAD: Normocephalic. EYES: No scleral icterus. No injection or drainage. NECK: Supple, trachea midline. No JVD or lymphadenopathy. CARDIOVASCULAR: Regular rate and rhythm without murmurs, gallops, or rubs. RESPIRATORY: Breath sounds equal bilaterally. No accessory muscle use. GASTROINTESTINAL: Abdomen soft, non-tender, nondistended. MUSCULOSKELETAL: No cyanosis, or edema. BACK: Nontender without obvious deformity. No CVA tenderness. Hospital Course surgery: 01/07 Minimally invasive AVR with a 23 Intuity tissue valve Ultrasound-guided left femoral artery and vein access with Perclose closure of the artery CHRISTINE 01/08/17 c/o right shoulder and back pain., anemic 01/09/17 c/o right shoulder pain 01/10 right shoulder pain, slight improvement , add K pad , no deformity noted to tight shoulder, + tenderness over right rhomboid area/ scapula / muscular needs aggressive pulm toileting , atelectasis right lower lobe on room air eval for dc in am , continue pulm toileting 01/11 doing well, on room air, pain improved right shoulder and scapular area stable for dc home Hemoglobin improved and stable Pt Condition on Discharge: Good Discharge Disposition: Disch w/ Home Health Serv Discharge Instructions DIET: Follow Instructions for: Heart Healthy Diet Activities you can perform: Full Weight Bearing, Shower Only-No Bath Activities to avoid: Strenuous Activity, Driving Additional Activity Instructio: no lifting > 8 lbs or gallon of milk Follow up Referrals: Cardiology, Interventional with Alfredo Reese MD PCP Follow-up with Gladys Garcia M.d. Surgical with Enedelia Colon MD New Orders: 2D ECHO - 2 Weeks BASIC METABOLIC PROF - 2 Weeks CBC NO DIFF - 2 Weeks X-RAY CHEST PA & LAT - 2 Weeks New Medications: Furosemide (Lasix) 40 Mg Tab 40 MG PO DAILY for edema, #7 TAB 1 Refill Potassium Chloride ER (Potassium Chloride ER) 20 Meq Tab 20 MEQ PO DAILY for Electrolyte Replacement, #7 TAB 1 Refill Amiodarone (Amiodarone) 200 Mg Tab 200 MG PO BID for heart rhythm MDD hea, #28 TAB 0 Refills Docusate Sodium (Dok) 100 Mg Cap 100 MG PO BID for Constipation, #60 CAP 0 Refills Metoprolol Tartrate (Metoprolol Tartrate) 25 Mg Tab 12.5 MG PO Q12HR for Blood Pressure Management, #60 TAB 2 Refills Multiple Vitamins W/ Minerals (Thera M Plus) 1 Tab 1 TAB PO DAILY for multi vitamin, #30 TAB 2 Refills Oxycodone HCl/Acetaminophen (Oxycodone-Acetaminophen 5-325) 5 Mg-325 Mg Tablet 1 TAB PO Q4H PRN for PAIN SCALE 1 TO 5, #40 TAB 0 Refills Continued Medications: Aspirin DR (Aspirin DR) 81 Mg Tabdr 81 MG PO DAILY, TAB 0 Refills Calcium Carbonate-Vitamin D W/Minerals (Calcium 600+D Plus Minerals) 600-400 Mg- Unit Tab 1 TAB PO BID for Nutritional Supplement, TAB 0 Refills Cobalamine Combinations (Vitamin U44-Jnrxk Acid) 500-400 Mcg Tab 1 TAB PO DAILY for Nutritional Supplement, TAB 0 Refills Dextrin (Easy Fiber) 3 Gram/3.5 Gram Powder 2 PO DAILY Ferrous Sulfate (Ferrous Sulfate) 325 Mg (65 Mg Iron) Tablet 325 MG PO DAILY for Nutritional Supplement, #30 TAB 0 Refills Fish Oil-Cholecalciferol ([place]-3 Fish Oil/Vitamin) 1,000-1,000 Mg Cap 1 CAP PO DAILY for Nutritional Supplement, CAP 0 Refills Lovastatin (Lovastatin) 40 Mg Tab 40 MG PO DAILY for Cholesterol Management, #30 TAB 0 Refills Omeprazole (Omeprazole) 20 Mg Tab 20 MG PO DAILY, #30 TAB 0 Refills Discontinued Medications: Enalapril (Enalapril) 10 Mg Tab 10 MG PO DAILY, #30 TAB 0 Refills Hydrochlorothiazide (Hydrochlorothiazide) 12.5 Mg Tab 12.5 MG PO DAILY, #30 TAB 0 Refills Tita Hernandez Jan 11, 2017 15:36
== END 2017-01-11 14:08 | disposition home health service (06) | DRG 220 ==
LOC: HSDI 01-07 05:27 → HCVI 01-07 13:10 → HCPC 01-09 11:35
PROVIDERS: ADMIT Thoracic Surgery (Cardiothoracic Vascular Surgery); ATTEND Thoracic Surgery (Cardiothoracic Vascular Surgery)
PROC: 5A1221Z Performance of Cardiac Output, Continuous (ICD-10-PCS; 2017-01-07)
PROC: 02RF08Z Replacement of Aortic Valve with Zooplastic Tissue, Open Approach (ICD-10-PCS; principal; 2017-01-07 07:23)
PROC: B246ZZ4 Ultrasonography of Right and Left Heart, Transesophageal (ICD-10-PCS; 2017-01-07 07:23)
PROC: 30233N1 Transfusion of Nonautologous Red Blood Cells into Peripheral Vein, Percutaneous Approach (ICD-10-PCS; 2017-01-08)
DX: I35.0 Nonrheumatic aortic (valve) stenosis (principal); I13.0 Hypertensive heart and chronic kidney disease with heart failure and stage 1 through stage 4 chronic kidney disease, or unspecified chronic kidney disease; I50.30 Unspecified diastolic (congestive) heart failure; D64.9 Anemia, unspecified; N18.2 Chronic kidney disease, stage 2 (mild); E78.5 Hyperlipidemia, unspecified; I25.10 Atherosclerotic heart disease of native coronary artery without angina pectoris; I07.1 Rheumatic tricuspid insufficiency; M25.511 Pain in right shoulder; M54.9 Dorsalgia, unspecified; Z95.1 Presence of aortocoronary bypass graft
CPT/HCPCS: 36430; 71010; 76937; 80048; 82948; 83735; 85014; 85018; 85025; 85027; 86850; 86900; 86901; 86920; 86922; 88305; 88311; 93005; 93318; 94150; 94640; 94667; 94668; C1713; J0131; J0282; J0690; J1644; J1815; J1817; J1940; J2150; J2250; J2370; J2710; J2720; J2930; J3010; J3370; J3475; J3480; J7120; P9016; P9045; P9047